=== PATIENT | male | born 1945 | race Caucasian/White ===

== ENCOUNTER → 2023-08-26 08:50 | Outpatient (REF) | payer MEDICARE, SELFPAY | LOC: RAD 08:50 | PROVIDERS: ATTENDING PHYSICIAN Nurse Practitioner Family; FAMILY PHYSICIAN Family Medicine | DX: R06.02 Shortness of breath (principal) | CPT/HCPCS: 71046 ==

== ENCOUNTER → 2023-11-04 07:23 | Outpatient (REF) | payer MEDICARE, SELFPAY ==
[2023-11-04 08:31] LABS: ALT (SGPT) 33 U/L (0-50); AST (SGOT) 29 U/L (17-59); Albumin 4.5 g/dl (3.5-5.0); Alkaline Phosphatase 68 U/L (38-126); Blood Urea Nitrogen 27 mg/dl (9-20); Carbon Dioxide 24 mmol/L (22-30); Chloride 103 mmol/L (98-107); Glucose 168 mg/dl (70-99); HDL Cholesterol 54 mg/dl; Potassium 4.4 mmol/L (3.5-5.1); Sodium 137 mmol/L (135-145); Total Bilirubin 1.1 mg/dl (0.2-1.3); Total Cholesterol 219 mg/dl (50-199); Total Protein 6.7 g/dl (6.3-8.2); eGFR 52.41
[2023-11-04 09:31] LABS: Triglyceride 628 mg/dl (10-149)
[2023-11-04 10:21] LABS: LDL Cholesterol, Direct 60 mg/dl
== END ==
LOC: REG 07:23
PROVIDERS: ATTENDING PHYSICIAN Nurse Practitioner Family
DX: Z86.73 Personal history of transient ischemic attack (TIA), and cerebral infarction without residual deficits (principal); R73.02 Impaired glucose tolerance (oral); I10 Essential (primary) hypertension; E11.22 Type 2 diabetes mellitus with diabetic chronic kidney disease
CPT/HCPCS: 36415; 80053; 80061; 83721

== ENCOUNTER → 2023-11-18 08:10 | Outpatient (REF) | payer MEDICARE, SELFPAY | LOC: RCS 08:10 | PROVIDERS: ATTENDING PHYSICIAN Internal Medicine Cardiovascular Disease; FAMILY PHYSICIAN Family Medicine | DX: R06.02 Shortness of breath (principal) | CPT/HCPCS: 93306 ==

== ENCOUNTER → 2023-11-19 06:59 | Outpatient (REF) | payer MEDICARE, SELFPAY | LOC: DHCBC/DCA 06:59 | PROVIDERS: ATTENDING PHYSICIAN Internal Medicine Cardiovascular Disease; FAMILY PHYSICIAN Family Medicine | DX: R06.02 Shortness of breath (principal) | CPT/HCPCS: 78452; 93017; A9500 ==

== ENCOUNTER → 2024-02-03 07:31 | Outpatient (REF) | payer MEDICARE, SELFPAY ==
[2024-02-03 11:13] LABS: Protein/creatinine Ratio 2.8; Urine Protein 187 mg/dl
== END ==
LOC: REG 07:31
PROVIDERS: ATTENDING PHYSICIAN Specialist
DX: C64.1 Malignant neoplasm of right kidney, except renal pelvis (principal); I10 Essential (primary) hypertension; E11.22 Type 2 diabetes mellitus with diabetic chronic kidney disease; N18.31 Chronic kidney disease, stage 3a; R80.1 Persistent proteinuria, unspecified; R73.02 Impaired glucose tolerance (oral); E78.1 Pure hyperglyceridemia
CPT/HCPCS: 36415; 82570; 84156

== ENCOUNTER → 2024-02-06 07:26 | Outpatient (REF) | payer MEDICARE, SELFPAY ==
[2024-02-06 08:46] LABS: ALT (SGPT) 51 U/L (0-50); AST (SGOT) 41 U/L (17-59); Alkaline Phosphatase 69 U/L (38-126); Blood Urea Nitrogen 28 mg/dl (9-20); Calcium 10.1 mg/dl (8.4-10.2); Carbon Dioxide 22 mmol/L (22-30); Chloride 103 mmol/L (98-107); Glucose 153 mg/dl (70-99); HDL Cholesterol 57 mg/dl; LDL Cholesterol, Calculated 96 mg/dl; Potassium 4.5 mmol/L (3.5-5.1); Sodium 142 mmol/L (135-145); Total Bilirubin 1.1 mg/dl (0.2-1.3); Total Cholesterol 226 mg/dl (50-199); Total Protein 7.1 g/dl (6.3-8.2); Triglyceride 368 mg/dl (10-149); Very Low Density Lipoprotein 73 mg/dl (0-30); eGFR 52.09
[2024-02-06 09:38] LABS: Intact PTH 55.5 pg/ml (13.6-85.8)
[2024-02-08 08:49] LABS: ANA, IgG Reflex to HEp-2 None Detected (None Detected)
[2024-02-08 14:52] LABS: Myeloperoxidase Antibody 0 AU/mL (0-19); Serine Protease-3, IgG 0 AU/mL (0-19)
[2024-02-09 01:21] LABS: Phospholipase A2 Receptor, IgG <1:10 (<1:10)
== END ==
LOC: REG 07:26
PROVIDERS: ATTENDING PHYSICIAN Specialist; FAMILY PHYSICIAN Nurse Practitioner Family
DX: E78.1 Pure hyperglyceridemia (principal); R73.02 Impaired glucose tolerance (oral); C64.1 Malignant neoplasm of right kidney, except renal pelvis; I10 Essential (primary) hypertension; E11.22 Type 2 diabetes mellitus with diabetic chronic kidney disease; N18.31 Chronic kidney disease, stage 3a; R80.1 Persistent proteinuria, unspecified
CPT/HCPCS: 80053; 80061; 83516; 83970; 84155; 84165; 86038; 86255

== ENCOUNTER → 2024-02-15 14:16 | Outpatient (REF) | payer MEDICARE, SELFPAY | LOC: RAD 14:16 | PROVIDERS: ATTENDING PHYSICIAN Specialist; FAMILY PHYSICIAN Nurse Practitioner Family | DX: C64.1 Malignant neoplasm of right kidney, except renal pelvis (principal); I10 Essential (primary) hypertension; N18.31 Chronic kidney disease, stage 3a; R80.1 Persistent proteinuria, unspecified | CPT/HCPCS: 76770 ==

== ENCOUNTER → 2024-04-20 07:59 | Outpatient (REF) | payer MEDICARE, SELFPAY ==
[2024-04-20 10:26] LABS: Blood Urea Nitrogen 27 mg/dl (9-20); Calcium 9.9 mg/dl (8.4-10.2); Carbon Dioxide 24 mmol/L (22-30); Chloride 102 mmol/L (98-107); Glucose 165 mg/dl (70-99); Potassium 4.1 mmol/L (3.5-5.1); Sodium 142 mmol/L (135-145); eGFR > 60.00
== END ==
LOC: REG 07:59
PROVIDERS: ATTENDING PHYSICIAN Specialist; FAMILY PHYSICIAN Family Medicine
DX: N18.31 Chronic kidney disease, stage 3a (principal)
CPT/HCPCS: 36415; 80048

== ENCOUNTER → 2024-06-15 07:41 | Outpatient (REF) | payer MEDICARE, SELFPAY ==
[2024-06-15 08:41] LABS: Protein/creatinine Ratio 1.1; Urine Protein 70 mg/dl
[2024-06-15 08:55] LABS: Blood Urea Nitrogen 35 mg/dl (9-20); Calcium 10.2 mg/dl (8.4-10.2); Carbon Dioxide 23 mmol/L (22-30); Chloride 100 mmol/L (98-107); Glucose 178 mg/dl (70-99); HDL Cholesterol 52 mg/dl; LDL Cholesterol, Calculated 92 mg/dl; Potassium 4.6 mmol/L (3.5-5.1); Sodium 136 mmol/L (135-145); Total Cholesterol 220 mg/dl (50-199); Triglyceride 384 mg/dl (10-149); Very Low Density Lipoprotein 76 mg/dl (0-30); eGFR 41.26
== END ==
LOC: REG 07:41
PROVIDERS: ATTENDING PHYSICIAN Specialist; FAMILY PHYSICIAN Nurse Practitioner Family
DX: I10 Essential (primary) hypertension (principal); N18.31 Chronic kidney disease, stage 3a; E78.5 Hyperlipidemia, unspecified; R80.1 Persistent proteinuria, unspecified; E11.22 Type 2 diabetes mellitus with diabetic chronic kidney disease
CPT/HCPCS: 36415; 80048; 80061; 82570; 84156

== ENCOUNTER → 2024-10-04 14:41 | Outpatient (REF) | payer MEDICARE, SELFPAY ==
[2024-10-04 17:01] LABS: Blood Urea Nitrogen 28 mg/dl (9-20); Calcium 9.9 mg/dl (8.4-10.2); Carbon Dioxide 26 mmol/L (22-30); Chloride 106 mmol/L (98-107); Glucose 173 mg/dl (70-99); Potassium 4.5 mmol/L (3.5-5.1); Sodium 142 mmol/L (135-145); eGFR 38.53
== END ==
LOC: REG 14:41
PROVIDERS: ATTENDING PHYSICIAN Specialist; FAMILY PHYSICIAN Nurse Practitioner Family
DX: N18.31 Chronic kidney disease, stage 3a (principal); I10 Essential (primary) hypertension; E11.22 Type 2 diabetes mellitus with diabetic chronic kidney disease; R80.1 Persistent proteinuria, unspecified
CPT/HCPCS: 36415; 80048

== ENCOUNTER → 2024-10-20 08:31 | Outpatient (REF) | payer MEDICARE, SELFPAY ==
[2024-10-20 10:37] LABS: Blood Urea Nitrogen 23 mg/dl (9-20); Calcium 9.8 mg/dl (8.4-10.2); Carbon Dioxide 28 mmol/L (22-30); Chloride 107 mmol/L (98-107); Glucose 182 mg/dl (70-99); Potassium 4.7 mmol/L (3.5-5.1); Sodium 142 mmol/L (135-145); eGFR 44.38
== END ==
LOC: REG 08:31
PROVIDERS: ATTENDING PHYSICIAN Specialist; FAMILY PHYSICIAN Nurse Practitioner Family
DX: I10 Essential (primary) hypertension (principal); Z90.5 Acquired absence of kidney; N18.31 Chronic kidney disease, stage 3a
CPT/HCPCS: 36415; 80048

== ENCOUNTER → 2024-11-17 07:23 | Outpatient (REF) | payer MEDICARE, SELFPAY ==
[2024-11-17 09:04] LABS: ALT (SGPT) 31 U/L (0-50); AST (SGOT) 24 U/L (17-59); Albumin 4.6 g/dl (3.5-5.0); Alkaline Phosphatase 53 U/L (38-126); Blood Urea Nitrogen 28 mg/dl (9-20); Carbon Dioxide 23 mmol/L (22-30); Chloride 107 mmol/L (98-107); Glucose 174 mg/dl (70-99); HDL Cholesterol 57 mg/dl; LDL Cholesterol, Calculated 66 mg/dl; Potassium 4.7 mmol/L (3.5-5.1); Sodium 139 mmol/L (135-145); Total Bilirubin 1.1 mg/dl (0.2-1.3); Total Cholesterol 185 mg/dl (50-199); Total Protein 6.7 g/dl (6.3-8.2); Triglyceride 312 mg/dl (10-149); Very Low Density Lipoprotein 62 mg/dl (0-30); eGFR 47.65
[2024-11-17 10:50] LABS: Glycohemoglobin (HgbA1c) 7.1 % (4.0-5.6)
== END ==
LOC: REG 07:23
PROVIDERS: ATTENDING PHYSICIAN Nurse Practitioner Family
DX: E11.22 Type 2 diabetes mellitus with diabetic chronic kidney disease (principal); Z90.5 Acquired absence of kidney; N18.31 Chronic kidney disease, stage 3a; I10 Essential (primary) hypertension
CPT/HCPCS: 36415; 80053; 80061; 83036

== ENCOUNTER → 2025-03-04 08:02 | Outpatient (REF) | payer MEDICARE, SELFPAY ==
[2025-03-04 09:46] LABS: ALT (SGPT) 34 U/L (0-50); AST (SGOT) 29 U/L (17-59); Albumin 4.6 g/dl (3.5-5.0); Alkaline Phosphatase 57 U/L (38-126); Blood Urea Nitrogen 24 mg/dl (9-20); Calcium 9.9 mg/dl (8.4-10.2); Carbon Dioxide 25 mmol/L (22-30); Chloride 106 mmol/L (98-107); Glucose 172 mg/dl (70-99); Potassium 4.5 mmol/L (3.5-5.1); Sodium 139 mmol/L (135-145); Total Protein 6.7 g/dl (6.3-8.2); eGFR 51.77
[2025-03-04 12:20] LABS: Glycohemoglobin (HgbA1c) 7.4 % (4.0-5.6)
== END ==
LOC: REG 08:02
PROVIDERS: ATTENDING PHYSICIAN Nurse Practitioner Family; REFERRING PHYSICIAN Specialist
DX: Z86.73 Personal history of transient ischemic attack (TIA), and cerebral infarction without residual deficits (principal); I10 Essential (primary) hypertension; E78.5 Hyperlipidemia, unspecified; E11.22 Type 2 diabetes mellitus with diabetic chronic kidney disease; Z90.5 Acquired absence of kidney; N18.31 Chronic kidney disease, stage 3a
CPT/HCPCS: 36415; 80053; 83036